=== PATIENT | female | born 1960 | race African-American/Black ===

== ENCOUNTER 2021-08-28 17:51 | Outpatient (CLI) | payer OTHER, SELFPAY ==
--- NOTE | ~2021-08-28 | XR_ITS ---
EXAMINATION: XR hand BI arthritis min 3V DATE: 08/28/2021 18:25 INDICATION: Unspecified osteoarthritis, unspecified site. TECHNIQUE: 4 views of right hand and 4 views of left hand on a total of 7 radiographs were obtained. COMPARISON: None. FINDINGS: RIGHT HAND: Bone alignment is normal. No fracture. There is uniform joint space narrowing in the midc arpal compartment. There is mild osteoarthritis of first carpometacarpal joint. There is severe joint space narrowing of the second and third metacarpophalangeal joints with erosions of the heads of the metacarpals. There is mild osteoarthritis of many of the metacarpophalangeal joints and interphalang eal joints. LEFT HAND: Bone alignment is normal. No fracture. There is mild osteoarthritis of first carpometacarp al joint. There is mild osteoarthritis of many of the metacarpophalangeal joints and interphalangeal joints. There is moderate joint space narrowing of second and fifth metacarpophalangeal joints. IMPRESSION: 1. Polyarticular inflammatory arthropathy predominantly involving the metacarpophalangeal joints and right midcarpal compartment, likely rheumatoid arthritis. 2. Polyarticular osteoarthritis. Reviewed, dictated and finalized at location A. IMPRESSION: 1. Polyarticular inflammatory arthropathy predominantly involving the metacarpo phalangeal joints and right midcarpal compartment, likely rheumatoid arthritis. 2. Polyarticular osteoarthritis.
--- NOTE | ~2021-08-28 | XR_ITS ---
EXAMINATION: XR foot RT standing 2V DATE: 08/28/2021 18:25 INDICATION: Rheumatoid arthritis with rheumatoid factor of multiple sites. TECHNIQUE: 2 views of right foot standing were obtained. COMPARISON: None. FINDINGS: There is mild hallux valgus. No fracture. There is mild osteoarthritis of first metatarsoph alangeal joint and moderate osteoarthritis of third metacarpal tarsophalangeal joint. There is mild o steoarthritis of talonavicular joint and some of the interphalangeal joints. There are enthesophytes at the posterior and plantar aspects of calcaneal tuberosity. IMPRESSION: 1. Polyarticular osteoarthritis. 2. Mild hallux valgus. Reviewed, dictated and finalized at location A.
--- NOTE | ~2021-08-28 | XR_ITS ---
EXAMINATION: XR foot LT standing 2V DATE: 08/28/2021 18:25 INDICATION: Rheumatoid arthritis with rheumatoid factor of multiple sites. TECHNIQUE: 2 views of right foot standing were obtained. COMPARISON: None. FINDINGS: There is mild hallux valgus. No fracture. There is mild osteoarthritis of first and third m etatarsophalangeal joints and some of the interphalangeal joints. There are erosions of the heads of the third and fifth metatarsals. There is an enthesophyte at posterior aspect of calcaneal tuberosity . IMPRESSION: 1. Erosions of the heads of the third and fifth metatarsals, consistent with inflammatory arthropathy such as rheumatoid arthritis. 2. Polyarticular osteoarthritis. Reviewed, dictated and finalized at location A. IMPRESSION: 1. Erosions of the heads of the third and fifth metatarsals, consistent with in flammatory arthropathy such as rheumatoid arthritis. 2. Polyarticular osteoarthritis.
[2021-08-28 18:15] LABS: Hematocrit 37.7 % (37.0-47.0); Hemoglobin 12.2 g/dL (12.0-15.0); Mean Corpuscular HGB Conc 32.4 g/dl (32-36); Mean Corpuscular Hemoglobin 31.6 pg (26-34); Mean Corpuscular Volume 97.7 fl (80-100); Mean Platelet Volume 9.3 fl (7.4-10.4); Platelet Count Result 369 k/mm3 (150-375); Red Blood Count 3.86 M/mm3 (4.2-5.4); Red Cell Distribution Width 14.6 % (11.5-14.5); White Blood Count 8.4 K/mm3 (4.5-10.0)
[2021-08-28 18:41] LABS: Erythrocyte Sedimentation Rate 20 mm/hr (0-20)
[2021-08-28 19:52] LABS: Alanine Aminotransferase 27 U/L (4-35); Albumin Level 4.7 g/dL (3.5-5.1); Alkaline Phosphatase 76 U/L (38-126); Anion Gap 9 mmol/L (8-16); Aspartate Amino Transferase 38 U/L (14-36); Bilirubin,Total 0.6 mg/dL (0.2-1.3); Blood Urea Nitrogen 28 mg/dL (7-17); CRP < 0.5 mg/dL (<1.0); Carbon Dioxide 25 mmol/L (22-30); Chloride 107 mmol/L (98-107); Estimated Glomerular Filt Rate 55; Glucose 73 mg/dL (65-110); Potassium 4.9 mmol/L (3.4-5.0); Sodium 141 mmol/L (137-145)
[2021-08-28 20:45] LABS: Rheumatoid Factor > 120.0 IU/ML (<12)
[2021-08-30 12:58] LABS: NIL 0.22 IU/mL; Quantiferon TB Plus, 1T NEGATIVE (NEGATIVE); TB1-NIL <0.00 IU/mL; TB2-NIL <0.00 IU/mL
[2021-08-31 11:59] LABS: Anti Cyclic Citrullinated Pept 150 Units (<20)
== END 2021-08-28 17:52 | disposition home or self-care (01) ==
LOC: ANHLAB 17:56
PROVIDERS: Visit Provider Internal Medicine
DX: M05.79 Rheumatoid arthritis with rheumatoid factor of multiple sites without organ or systems involvement (principal); M19.90 Unspecified osteoarthritis, unspecified site; M19.042 Primary osteoarthritis, left hand; M19.041 Primary osteoarthritis, right hand; M19.072 Primary osteoarthritis, left ankle and foot; M19.071 Primary osteoarthritis, right ankle and foot; M20.11 Hallux valgus (acquired), right foot
CPT/HCPCS: 36415; 73130; 73620; 80053; 85027; 85652; 86038; 86039; 86140; 86200; 86430; 86480

== ENCOUNTER 2021-12-15 17:36 | Outpatient (CLI) | payer OTHER, SELFPAY ==
[2021-12-15 17:55] LABS: Basophils Absolute Auto 0.1 K/mm3 (0.0-0.1); Basophils Percent Auto 0.6 % (0.2-1.2); Eosinophils Absolute Auto 0.3 K/mm3 (0-0.3); Hematocrit 37.9 % (37.0-47.0); Hemoglobin 12.4 g/dL (12.0-15.0); Immature Granulocyte Absolute 0.39 K/mm3 (0.00-0.031); Immature Granulocyte Percent A 2.7 % (0-0.5); Lymphocytes Absolute Auto 3.02 K/mm3 (0.9-3.2); Lymphocytes Percent Auto 20.6 % (18.3-44.2); Mean Corpuscular HGB Conc 32.7 g/dl (32-36); Mean Corpuscular Hemoglobin 31.2 pg (26-34); Mean Corpuscular Volume 95.5 fl (80-100); Mean Platelet Volume 8.9 fl (7.4-10.4); Monocytes Percent Auto 6.5 % (2.6-8.5); Neutrophils Absolute Auto 9.9 K/mm3 (1.3-6.7); Neutrophils Percent Auto 67.6 % (45.5-73.1); Nucleated Red Blood Cells Perc 0.1 % (0.0-0.2); Platelet Count Result 419 k/mm3 (150-375); Red Blood Count 3.97 M/mm3 (4.2-5.4); Red Cell Distribution Width 14.6 % (11.5-14.5); White Blood Count 14.7 K/mm3 (4.5-10.0)
[2021-12-15 18:01] LABS: Appearance Urine Clear (Clear); Bilirubin Urine Negative (Negative); Blood Urine Negative (Negative); Color Urine Yellow (Yellow); Glucose Urine UA Negative (Negative); Ketones Urine Trace mg/dL (Negative); Leukocyte Esterase Ur Negative LEU/UL (Negative); Nitrate Urine Negative (Negative); Protein Urine Negative (Negative); Specific Grav Ur >= 1.030 (1.001-1.035); Urobilinogen Urine 0.2 mg/dL (<2.0)
[2021-12-15 18:05] LABS: Alanine Aminotransferase 24 U/L (6-35); Albumin Level 4.6 g/dL (3.5-5.1); Alkaline Phosphatase 78 U/L (38-126); Anion Gap 10 mmol/L (8-16); Aspartate Amino Transferase 31 U/L (14-36); Bilirubin,Total 0.5 mg/dL (0.2-1.3); Blood Urea Nitrogen 34 mg/dL (7-17); Calcium 8.8 mg/dL (8.4-10.2); Carbon Dioxide 22 mmol/L (22-30); Chloride 107 mmol/L (98-107); Estimated Glomerular Filt Rate 39; Glucose 102 mg/dL (65-110); Potassium 4.3 mmol/L (3.4-5.0); Sodium 139 mmol/L (137-145)
[2021-12-15 18:30] LABS: Bacteria Urine Trace /hpf; Mucus Urine Rare /lpf; Squamous Epithelial Cell Urine Many /hpf (Few); Transitional Epi Cells Urine Rare /hpf (None Seen)
[2021-12-15 18:32] LABS: Erythrocyte Sedimentation Rate 24 mm/hr (0-20)
[2021-12-15 18:32] LABS: Add Urine Microscopic? YES
== END 2021-12-15 17:37 | disposition home or self-care (01) ==
LOC: ANHLAB 17:38
PROVIDERS: Visit Provider Internal Medicine
DX: Z51.81 Encounter for therapeutic drug level monitoring (principal); Z79.899 Other long term (current) drug therapy; Z71.89 Other specified counseling; R21 Rash and other nonspecific skin eruption
CPT/HCPCS: 36415; 80053; 81001; 85025; 85652

== ENCOUNTER 2022-02-13 17:36 | Outpatient (CLI) | payer OTHER, SELFPAY ==
--- NOTE | ~2022-02-13 | XR_ITS ---
EXAMINATION: XR lumbar spine min 4V DATE: 02/13/2022 17:59 INDICATION: Rheumatoid arthritis, unspecified. TECHNIQUE: 5 views of lumbar spine were obtained. COMPARISON: None. FINDINGS: There is 9 degrees dextrocurvature of lumbar spine. There is 4 mm anterolisthesis of L4 on L5. Vertebral body heights are normal. There is mildly decreased disc height at L4-L5 and severely de creased disc height at L5-S1. There is severe facet joint osteoarthritis at L4-L5. IMPRESSION: 1. Severe lower lumbar spondylosis. Reviewed, dictated and finalized at location A.
[2022-02-13 17:57] LABS: Appearance Urine Clear (Clear); Bilirubin Urine Negative (Negative); Color Urine Yellow (Yellow); Glucose Urine UA Negative (Negative); Ketones Urine Negative (Negative); Leukocyte Esterase Ur Trace LEU/UL (Negative); Nitrate Urine Negative (Negative); Protein Urine Negative (Negative); Specific Grav Ur >= 1.030 (1.001-1.035); Urobilinogen Urine 0.2 mg/dL (<2.0)
[2022-02-13 17:57] LABS: Basophils Absolute Auto 0.1 K/mm3 (0.0-0.1); Basophils Percent Auto 0.5 % (0.2-1.2); Eosinophils Absolute Auto 0.1 K/mm3 (0-0.3); Eosinophils Percent Auto 0.5 % (0-4.4); Hemoglobin 13.3 g/dL (12.0-15.0); Immature Granulocyte Absolute 0.09 K/mm3 (0.00-0.031); Immature Granulocyte Percent A 0.7 % (0-0.5); Lymphocytes Absolute Auto 2.16 K/mm3 (0.9-3.2); Lymphocytes Percent Auto 16.9 % (18.3-44.2); Mean Corpuscular HGB Conc 31.7 g/dl (32-36); Mean Corpuscular Volume 94.8 fl (80-100); Mean Platelet Volume 9.5 fl (7.4-10.4); Monocytes Absolute Auto 0.7 K/mm3 (0.1-0.6); Monocytes Percent Auto 5.3 % (2.6-8.5); Neutrophils Absolute Auto 9.7 K/mm3 (1.3-6.7); Neutrophils Percent Auto 76.1 % (45.5-73.1); Platelet Count Result 419 k/mm3 (150-375); Red Blood Count 4.43 M/mm3 (4.2-5.4); Red Cell Distribution Width 13.2 % (11.5-14.5); White Blood Count 12.8 K/mm3 (4.5-10.0)
[2022-02-13 18:04] LABS: Alanine Aminotransferase 26 U/L (6-35); Albumin Level 4.7 g/dL (3.5-5.1); Alkaline Phosphatase 91 U/L (38-126); Anion Gap 11 mmol/L (8-16); Aspartate Amino Transferase 25 U/L (14-36); Bilirubin,Total 0.4 mg/dL (0.2-1.3); Blood Urea Nitrogen 25 mg/dL (7-17); CRP < 0.5 mg/dL (<1.0); Calcium 9.5 mg/dL (8.4-10.2); Carbon Dioxide 24 mmol/L (22-30); Chloride 104 mmol/L (98-107); Estimated Glomerular Filt Rate 46; Glucose 109 mg/dL (65-110); Potassium 4.8 mmol/L (3.4-5.0); Sodium 139 mmol/L (137-145)
[2022-02-13 18:08] LABS: Mucus Urine Rare /lpf; Squamous Epithelial Cell Urine Few /hpf (Few)
[2022-02-13 18:12] LABS: Add Urine Microscopic? YES; Blood Urine Trace-Intact (Negative)
[2022-02-13 18:28] LABS: Erythrocyte Sedimentation Rate 16 mm/hr (0-20)
== END 2022-02-13 17:37 | disposition home or self-care (01) ==
LOC: ANHLAB 17:39
PROVIDERS: Visit Provider Internal Medicine
DX: M06.9 Rheumatoid arthritis, unspecified (principal); M19.90 Unspecified osteoarthritis, unspecified site; M47.896 Other spondylosis, lumbar region
CPT/HCPCS: 36415; 72110; 80053; 81001; 85025; 85652; 86140